=== PATIENT | male | born 1990 | race Asian ===

== ENCOUNTER 2024-06-07 09:27 | Outpatient (REF) | payer OTHER, SELFPAY ==
[2024-06-07 11:02] LABS: MANUAL DIFF FLAG NO
[2024-06-07 11:14] LABS: Basophils Percent Auto 0.7 % (0-2); Eosinophils Absolute Auto 0.3 X10*3/uL (0.0-0.4); Eosinophils Percent Auto 5.8 % (0-4); Hematocrit 44.7 % (42.0-52.0); Hemoglobin 15.4 g/dl (14.0-18.0); Imm Gran Abs Auto 0.03 X10*3/uL (0.00-0.03); Imm Gran Pct Auto 0.5 % (0.0-0.4); Lymphocytes Absolute Auto 1.8 X10*3/uL (1.2-4.9); Lymphocytes Percent Auto 29.9 % (20-40); Mean Corpuscular HGB Conc 34.5 g/dl (31.0-36.0); Mean Corpuscular Hemoglobin 31.5 pg (27.0-33.0); Mean Corpuscular Volume 91.4 fL (80.0-98.0); Mean Platelet Volume 10.4 fL (9.4-12.4); Monocytes Absolute Auto 0.5 X10*3/uL (0.1-1.2); Monocytes Percent Auto 8.7 % (2-11); Neutrophils Absolute Auto 3.2 x10*3/uL (2.0-8.3); Neutrophils Percent Auto 54.4 % (45-73); Platelet Count 225 X10*3/uL (160-400); Red Blood Count 4.89 X10*6/uL (4.60-5.80); Red Cell Distribution Width 12.3 % (11.0-16.0); White Blood Count 5.9 X10*3/uL (4.8-10.8)
[2024-06-07 12:31] LABS: Alanine Aminotransferase 35 U/L (0-40); Albumin Level 4.7 g/dL (3.5-5.0); Alkaline Phosphatase 67 U/L (39-117); Anion Gap 11 (12-20); Aspartate Amino Transferase 33 U/L (5-37); Bilirubin Total 1.2 mg/dL (0.0-1.0); Blood Urea Nitrogen 13 mg/dL (9-16); C Reactive Protein < 0.10 mg/dL (< or = 0.50); Carbon Dioxide 32 mmol/L (22-29); Chloride 105 mmol/L (96-108); Estimated Glomerular Filt Rate > 60; Glucose Random 98 mg/dL (60-115); Potassium 3.8 mmol/L (3.3-5.1); Sodium 144 mmol/L (135-145); Total Protein 7.5 g/dL (6.5-8.0)
[2024-06-07 12:40] LABS: HBS Num1 0.71 mIU/mL (0-7.99); HBc Num1 0.15 S/CO (0.00-0.79); Hepatitis B Core Antibody Nonreactive (Nonreactive); Hepatitis B Surface Antigen Negative (Negative); ~Hepatitis B Surface Antibody NONREACTIVE (Nonreactive); ~Hepatitis C Antibody Nonreactive (Nonreactive)
[2024-06-07 12:41] LABS: Hepatitis A Antibody IgG REACTIVE (Nonreactive); ~Hepatitis A Antibody IgG 11.78 S/CO (0.00-0.99)
[2024-06-07 12:51] LABS: Folate 7.2 ng/mL (> or = 4.0); Vitamin B12 360 pg/mL (200-900)
[2024-06-07 12:56] LABS: Free T4 (Free Thyroxine) 0.99 ng/dL (0.71-1.85); TSH reflex Free T4 1.54 uIU/mL (0.32-4.0)
[2024-06-07 13:05] LABS: Vitamin D 25-OH Total 19.8 ng/mL (>30)
[2024-06-09 17:03] LABS: Immunoglobulin A 159 mg/dL (47-310)
[2024-06-09 20:03] LABS: Transglutaminase IgA <1.0 U/mL
[2024-06-13 06:34] LABS: C1 Esterase Inhibitor 98 % (>=68)
== END 2024-06-07 09:28 | disposition home or self-care (01) ==
LOC: HO.LAB 09:27
PROVIDERS: PCP Nurse Practitioner Family; Visit Provider Internal Medicine
DX: K58.0 Irritable bowel syndrome with diarrhea (principal); K58.1 Irritable bowel syndrome with constipation; R10.30 Lower abdominal pain, unspecified; Z91.018 Allergy to other foods
CPT/HCPCS: 36415; 80053; 82306; 82607; 82746; 82784; 83520; 84439; 84443; 85025; 86140; 86160; 86161; 86364; 86704; 86706; 86708; 86803; 87340; 99202

== ENCOUNTER 2024-06-07 09:27 | Outpatient (AMB) | payer OTHER, SELFPAY ==
--- NOTE | 2024-06-07 09:29 | A.OFFVIS_ITS ---
Vital Signs 06/07/24 09:30 Height 5 ft 11 in Weight 176 lb 5.917 oz BMI 24.6 BP 136/75 Blood Pressure Location Lt radial Position Sitting Pulse 77 Intake Visit Reasons: Constipation Intake Note: Molly presents in the office as a new patient for constipation. CC: He states that he is having issues with constipation and other times he has diarrhea. Pains in the lower part of his abdomen. No blood when he has a BM. Mineral Surveying Technician Required: No Allergies No Known Allergies Allergy (Verified 06/07/24 09:31) HPI Comments Details: 33 y.o M with fluctuating BMs x years. [place] be in [place] moved to [facility] almost a year ago. Was recommended endoscopic work up back in [place] as well but never got around to it. Pt reports for the longest time had lower abd pain with diarrhea up to 5-6/ day. No night time sx. NO blood in stool. Abd pain gets better with defecation. More recently is fluctuating towards constipation for the past few months. Stool is hard and has to strain. Has not tried any specific therapy. Pt also reports extra-GI sx after certain foods such as increased sensation of flushing and skin rash after certain foods. Has never gotten food allergy testing done. Lifestyle is sedentary erika due to work. Diet is low in fiber. No fam hx of IBD or CRC. Labs from PCP reviewed- normal ESR. Review of Systems Const All systems reviewed & are unremarkable except as noted in HPI and below Physical Exam Vital Signs: Last Vital Signs Pulse 77 06/07/24 09:30 BP 136/75 06/07/24 09:30 BMI result Body Mass Index 24.6 No apparent distress Nonicteric Abdomen soft, nondistended Alert and oriented x3, normal gait Assessment & Plan Assessment & Plan (1) Irritable bowel syndrome with diarrhea: Code(s): K58.0 - Irritable bowel syndrome with diarrhea Category: Medical (2) Abdominal pain: Code(s): R10.9 - Unspecified abdominal pain Category: Medical (3) Food allergy: Code(s): Z91.018 - Allergy to other foods Category: Medical Plan Ddx include IBS, IBD, celiac, malabsorption, SIBO. Also question MCAS given reports of flushing and pruritic rash vs food allergy. Plan: - Labs as below - US Abd to r.o gallstones - Referral to professor of archaeology Follow up 6 weeks to review results Orders: Orders Comprehensive Met. Panel Today K58.0 - Irritable bowel syndrome with diarrhea, R10.9 - Unspecified abdominal pain Transglutaminase IgA Today K58.0 - Irritable bowel syndrome with diarrhea Immunoglobulin A Today K58.0 - Irritable bowel syndrome with diarrhea Vitamin B12 and Folate Today K58.0 - Irritable bowel syndrome with diarrhea Vitamin D 25-OH Total Today K58.0 - Irritable bowel syndrome with diarrhea Hepatitis B Core Antibody Today K58.0 - Irritable bowel syndrome with diarrhea Hepatitis B Surface Antibody Today K58.0 - Irritable bowel syndrome with diarrhea Complement C4 Today R10.9 - Unspecified abdominal pain C1 Esterase Inhibitor Today R10.9 - Unspecified abdominal pain C1 Inhibitor Protein Today R10.9 - Unspecified abdominal pain US abdomen complete Today R10.9 - Unspecified abdominal pain Complete Blood Count Auto Diff Today K58.0 - Irritable bowel syndrome with diarrhea, R10.9 - Unspecified abdominal pain Free T4 (Free Thyroxine) Today K58.0 - Irritable bowel syndrome with diarrhea, R10.9 - Unspecified abdominal pain TSH reflex Free T4 Today K58.0 - Irritable bowel syndrome with diarrhea, R10.9 - Unspecified abdominal pain Hepatitis A IgG Today K58.0 - Irritable bowel syndrome with diarrhea Hepatitis B Surface Antigen Today K58.0 - Irritable bowel syndrome with diarrhea Hepatitis C Antibody Today K58.0 - Irritable bowel syndrome with diarrhea Tryptase Today K58.0 - Irritable bowel syndrome with diarrhea C Reactive Protein Today R10.9 - Unspecified abdominal pain Calprotectin, Fecal Today R10.9 - Unspecified abdominal pain Referrals Allergy & Immunology Referral R10.9 - Unspecified abdominal pain, Z91.018 - Allergy to other foods Coding Level of Care Code New Pt Level 4 (13302) Complex EM visit Add On G2211 Diagnoses Irritable bowel syndrome with diarrhea K58.0 Abdominal pain R10.9 Food allergy Z91.018
[2024-06-07 09:30] VITALS: BP 136/75; PULSE 77; BMI 24.6
== END 2024-06-07 10:08 | disposition home or self-care (01) ==
PROVIDERS: PCP Nurse Practitioner Family; Visit Provider Internal Medicine
DX: K58.0 Irritable bowel syndrome with diarrhea (principal); R10.9 Unspecified abdominal pain; Z91.018 Allergy to other foods
CPT/HCPCS: 99204; G2211

== ENCOUNTER 2024-06-08 12:14 | Outpatient (REF) | payer OTHER, SELFPAY ==
[2024-06-16 23:43] LABS: Calprotectin, Fecal <5 mcg/g
== END 2024-06-08 12:15 | disposition home or self-care (01) ==
LOC: HO.LNP 12:14
PROVIDERS: Visit Provider Internal Medicine
DX: R10.9 Unspecified abdominal pain (principal)
CPT/HCPCS: 83993

== ENCOUNTER 2024-06-15 08:29 | Outpatient (REF) | payer OTHER, SELFPAY | END 2024-06-15 08:30 | disposition home or self-care (01) | LOC: HO.US 08:29 | PROVIDERS: PCP Nurse Practitioner Family; Visit Provider Internal Medicine | DX: R10.9 Unspecified abdominal pain (principal) | CPT/HCPCS: 76700 ==

== ENCOUNTER 2024-08-02 09:51 | Outpatient (AMB) | payer OTHER, SELFPAY ==
--- NOTE | 2024-08-02 09:54 | MHC.OFFVIS ---
Vital Signs 08/02/24 09:57 Height 5 ft 11 in Weight 177 lb BMI 24.7 BP 118/58 L Blood Pressure Location Lt brachial Position Sitting Pulse 80 Intake Visit Reasons: IBS 6 weeks Intake Note: Patient follow up for IBS. Patient cc: abdominal pain and painful constipation. Assistant Child Care Teacher Required: No Accompanied by: Self / Same As Patient Allergies No Known Allergies Allergy (Verified 08/02/24 09:56) HPI Comments Details: 33 y.o M with fluctuating BMs x years. [place] moved to [facility] almost a year ago. Was recommended endoscopic work up back [place] as well but never got around to it. Pt reports for the longest time had lower abd pain with diarrhea up to 5-6/ day. No night time sx. NO blood in stool. Abd pain gets better with defecation. More recently is fluctuating towards constipation for the past few months. Stool is hard and has to strain. Has not tried any specific therapy. Pt also reports extra-GI sx after certain foods such as increased sensation of flushing and skin rash after certain foods. Has never gotten food allergy testing done. Lifestyle is sedentary erika due to work. Diet is low in fiber. No fam hx of IBD or CRC. Labs from PCP reviewed- normal ESR. 08/02/24: Here for follow up. Was seen by indigo mixer 07/18 records pending. Reports continued issues with constipation including lower abd pain that gets better with defecation. Also with significant straining. Labs reviewed and apart from low complement 4, rest normal from GI standpoint. Reports work up is being done through indigo mixer office an resutls pending. Also has low Vit D for which supplements already started. Discussed dietary mods - had loose BMs with fiber so stopped within a week. Lifestyle is mostly sedentary. Laboratory Tests 06/07/24 06/08/24 11:00 09:45 Hgb 15.4 Hct 44.7 C-Reactive Protein < 0.10 Tryptase 3.4 25-OH Vitamin D Total 19.8 L TSH 1.54 Stool Calprotectin <5 Tiss Transglutamin IgA <1.0 Complement C4 13 L Hep Bs Antigen Negative Hep Bs Antibody NONREACTIVE Hep B Core Total Ab Nonreactive Review of Systems Const All systems reviewed & are unremarkable except as noted in HPI and below Physical Exam Vital Signs: Last Vital Signs Pulse 80 08/02/24 09:57 BP 118/58 L 08/02/24 09:57 BMI result Body Mass Index 24.7 No apparent distress Nonicteric Abdomen soft, nondistended Alert and oriented x3, normal gait Assessment & Plan Assessment & Plan (1) Abdominal pain: Code(s): R10.9 - Unspecified abdominal pain Category: Medical (2) Mixed irritable bowel syndrome: Code(s): K58.2 - Mixed irritable bowel syndrome Category: Medical (3) Not immune to hepatitis B virus: Code(s): Z78.9 - Other specified health status Category: Medical (4) Low vitamin D level: Code(s): R79.89 - Other specified abnormal findings of blood chemistry Category: Medical Plan Reviewed that based on w/up dx consistent with IBS-mixed type. Is bothered by constipation these days. Plan: - Adequate hydration - REsume fiber - can start slow with 1 tsp of psyllium mixed in 8 oz of water every day and build it up in a couple of weeks - Take miralax 17g once daily or every other day to avoid hard stools and straining - Elevate legs while having BM - Incorporate daily exercise/stretching - Associate Artistic Director records requested again Needs HBV immunization. Pt agreeable. Msg sent to RN \ Low vit D likely explains some of his fatigue he experiences on a daily basis. Supplement already started. Will recheck level before next appt to see if needs to cont. Follow up 3 months Orders: Orders Vitamin D 25-OH Total 10 Weeks R79.89 - Other specified abnormal findings of blood chemistry Coding Level of Care Code Est Pt Level 4 (27588) Diagnoses Abdominal pain R10.9 Mixed irritable bowel syndrome K58.2 Not immune to hepatitis B virus Z78.9 Low vitamin D level R79.89
[2024-08-02 09:57] VITALS: BP 118/58; PULSE 80; BMI 24.7
== END 2024-08-02 10:25 | disposition home or self-care (01) ==
PROVIDERS: PCP Nurse Practitioner Family; Visit Provider Internal Medicine
DX: R10.9 Unspecified abdominal pain (principal); K58.2 Mixed irritable bowel syndrome; Z78.9 Other specified health status; R79.89 Other specified abnormal findings of blood chemistry
CPT/HCPCS: 99214

== ENCOUNTER → 2024-08-02 09:51 | Outpatient (BNVA) | payer OTHER, SELFPAY | PROVIDERS: PCP Nurse Practitioner Family; Visit Provider Internal Medicine | DX: K58.2 Mixed irritable bowel syndrome (principal); R10.9 Unspecified abdominal pain; Z78.9 Other specified health status; R79.89 Other specified abnormal findings of blood chemistry | CPT/HCPCS: 99212 ==

== ENCOUNTER 2024-08-11 09:01 | Outpatient (AMB) | payer OTHER, SELFPAY ==
--- NOTE | 2024-08-11 09:15 | AM.OFFVISNUR ---
Intake Visit Reasons: Hep B #1 r/s 08/10 Allergies No Known Allergies Allergy (Verified 08/02/24 09:56) Immunizations Engerix-B (PF) 20 mcg/mL intramuscular suspension Performing Provider: Trinidad Kendall MD Performing Location: [facility] Administered by: Shaista Yen RN on 08/11/24 09:20 Dose Route Admin Location Dispensed Lot Number Expiration Date [facility] Geophysicist 1 mL IM Left Deltoid 1 mL [id number] 09/28/26 94784-491-88 [employer] VIS Given Date VIS Provided VIS Publication Date 08/11/24 Single Vaccine 22 Eligibility Eligibility Date Funding Source Not [facility] Eligible 08/11/24 Private Assessment & Plan Assessment & Plan Orders: Orders Hepatitis B Adult Immunization Today Z23 - Encounter for immunization Medications: New Engerix-B (PF) (hepatitis B virus vacc.rec(PF)) 1 mL IM ONCE 1 mL 0RF NS Z23 - Encounter for immunization
== END 2024-08-11 09:24 | disposition home or self-care (01) ==
PROVIDERS: PCP Nurse Practitioner Family; Visit Provider Internal Medicine
DX: Z23 Encounter for immunization (principal)

== ENCOUNTER → 2024-08-11 09:01 | Outpatient (BNVA) | payer OTHER, SELFPAY | PROVIDERS: PCP Nurse Practitioner Family; Visit Provider Internal Medicine | DX: Z23 Encounter for immunization (principal) | CPT/HCPCS: 90471; 90746; 99211 ==

== ENCOUNTER 2024-09-11 09:09 | Outpatient (AMB) | payer OTHER, SELFPAY ==
--- NOTE | 2024-09-11 09:23 | AM.OFFVISNUR ---
Intake Visit Reasons: Hep B #2 Allergies No Known Allergies Allergy (Verified 08/02/24 09:56) Immunizations Engerix-B (PF) 20 mcg/mL intramuscular suspension Performing Provider: Trinidad Kendall MD Performing Location: [facility] [place] [facility] Administered by: Shaista Yen RN on 09/11/24 09:23 Dose Route Admin Location Dispensed Lot Number Expiration Date [facility] Patient Consumer Marketer 1 mL IM Left Deltoid 1 mL [id number] 09/28/26 04976-757-05 [id number] VIS Given Date VIS Provided VIS Publication Date 09/11/24 Single Vaccine 22 Eligibility Eligibility Date Funding Source Not [facility] Eligible 09/11/24 Private Assessment & Plan Assessment & Plan Orders: Orders Hepatitis B Adult Immunization Today Z23 - Encounter for immunization Medications: New Engerix-B (PF) (hepatitis B virus vacc.rec(PF)) 1 mL IM ONCE 1 mL 0RF NS Z23 - Encounter for immunization
--- OUTSIDE RECORDS SUMMARY | 2024-09-11 13:27 | XMS_ITS | Continuity of Care Document ---
Author Organization [place] - [facility], [facility] Address [address] [place] [address] Care Team Providers Care Chief Engineer Waterworks Name Role Phone DAJUAN HYATT Primary Care Provider DAJUAN HYATT Referring Provider Assessment Encounter Date Assessment Date Assessment LastModified by Organization Details LastModified Time 08/30/2024 08/30/2024 Patient with right tympanic membrane perforation since childhood. Physical exam reveals it is clean and dry. We reviewed there are many options for repair and this would allow him to swim etc. Risks therein would include infection, scarring, change in hearing, lack of improvement, need for further treatment. Recommend dry ear precautions with wax plug for bathing and swimming; rationale reviewed and patient understands. He will return for surgical consult. He also reports his throat gets sore when he talks too long. We will scheduled comprehensive throat evaluation with laryngoscopy next available. [email or web address] Not available 08/30/2024 16:20:06 Plan of Treatment Reminders Order Date Submit Date Provider Last Modified By Organization Details Last Modified Time Details Appointments Establish ed 15 2024 09:15A M JEET FAROOQ PA-C Not available Not available Not available Establish ed 15 2024 09:00A M MARY LEA MD Not available Not available Not available Lab None recorded. Referral None recorded. Procedures None recorded. Surgeries None recorded. Imaging None recorded. Medication Orders None recorded. Patient TargetsNo targets recorded. Patient InstructionsNo instructions recorded. Reason for Referral None Reported. Results Created Date Observation Date Name Description Value Unit Range Abnormal Flag Note LastModifiedBy Organization Detail LastModifiedTime 09/01/19 25 audio gram No observ ation record ed. BARCODE Not Available 2024 12:59:06 Result Notes None recorded. Problems Name Problem SNOMED Code Status Onset Date Resolution Date Notes Provider Name and Address Organization Details Recorded Time Conductive hearing loss 41105400 Active 2024 Shabana mooney [place] - [facility] [place] 15:49:26 Chronic sore throat 394127467 Active 2024 ALEJANDRO FLYNN PA-C [address] [place] [address],[place] [address], [place], [phone], [facility] - [facility] [place] 16:20:23 Marginal perforation of tympanic membrane 09459867 Active 2024 ALEJANDRO FLYNN PA-C [address] [place] [address],[place] [address], [facility], [address], [facility] - [facility] [place] 16:20:38 Problem Notes None recorded. Procedures Surgical History Date Name Laterality Status Provider Name and Address Organization Details Recorded Time 08/30/2024 Comp Audio with Tymps (23984 & 93200) completed Shabana Licea [place] - [facility] [place] 08/30/2024 15:49:02 Imaging Results None recorded. Procedure Notes None recorded. Medical Equipment None Reported. Allergies No known drug allergies Medications Name Sig Start Date Stop Date Status Note LastModified by Organization Details LastModified Time azithromyci n 250 mg tablet TAKE 2 TABLETS BY MOUTH TODAY, THEN TAKE 1 TABLET DAILY FOR 4 DAYS DIRECTED 08/30 completed Not Available Not Available Not Available tretinoin 0.025 % topical cream PLEASE SEE ATTACHED FOR DETAILED DIRECTION S 08/30 completed Not Available Not Available Not Available benzoyl peroxide 10 % topical cleanser USE DAILY A BODY WASH.N OT COVERED * 08/30 completed Not Available Not Available Not Available cholecalcif kaitlin (vitamin D3) 125 mcg (5,000 unit) capsule TAKE 1 CAPSULE ORALLY EVERY WEEK FOR 90 DAYS active Not Available Not Available No t Available naproxen 500 mg tablet TAKE 1 TABLET BY MOUTH 2 TIMES A DAY NEEDED FOR PAIN 08/30 completed Not Available Not Available Not Available clindamycin phosphate 1 % topical solution APPLY TO AFFECTED AREA EVERY DAY 08/30 completed Not Available Not Available Not Available clindamycin 1 % lotion PLEASE SEE ATTACHED FOR DETAILED DIRECTION S 08/30 completed Not Available Not Available Not Available cholecalcif kaitlin (vitamin D3) 1,250 mcg (50,000 unit) capsule TAKE 1 CAPSULE BY MOUTH EVERY WEEK 08/30 completed Not Available Not Available Not Available Vitals None Recorded Social History None recorded. Functional Status None recorded. Mental Status None recorded. Family History Nothing Reported. Medical History No medical history recorded. Past Encounters Encounter ID Performer Location Encounter Start Date Encounter Closed Date Diagnosis/Indication Diagnosis SNOMED-CT Code Diagnosis ICD10 Code Diagnosis Note [id number] ALEJANDRO FLYNN PA-C [facility] [address] [address] 08/30/2024 15:20:29 08/30/2024 16:09:01 Conductive hearing loss 52980811 H90.11 Audiologic al evaluation results: Right ear: {{Normal N ormal through 2 kHz Mild M oderate Mo derately-s evere Umu re Profoun d Normal/m ild #}} {{with sen sorineural hearing loss with condu ctive hearing loss with* mixe d hearing loss with}} {{excellen t* good fa ir poor no measurable }} word recognitio n. Left ear: {{Normal* Normal through 2 kHz Mild M oderate Mo derately-s evere Umu re Profoun d}} {{hearing* hearing. sloping to a mild slopi ng to a moderate s loping to moderately severe slo ping to severe slo ping to profound f lat high frequency low frequency mid frequency cookie bite camargo curve}} {{with* se nsorineura l hearing loss with condu ctive hearing loss with mixed hearing loss with}} {{excellen t* good fa ir poor no measurable }} word recognitio n. Tympanomet ry: Right Ear:{{Type A Type As Type Ad Type C Type C, shallow & rounded Ty pe B Type B with large volume* Co uld not maintain a hermetic seal}} Left Ear:{{Type A* Type As Type Ad Type C Type C, shallow & rounded Ty pe B Type B with large volume Cou ld not maintain a hermetic seal}} Chronic sore throat 2754 70602 J31.2 Marginal p erforation of tympanic membrane 40180755 H72.2X1 Health Concerns Section Related Observation LastModified by Organization Detai ls LastModified Time None Recorded Concern Status LastModified by Organization Details LastModified Time None Recorded Payers Encounter Date Sequence Insurance Name Policy Number Policy Han Covered Member ID Han Member ID Guarantor Name 08/30/2024 1 [facility] (O) [id number] Molly Weinstein [id number] 1 Molly Corinna Notes Date Note Type Note Provider Name and Address Organization Details Recorded Time 08/30/2024 text/html 33 year old male presents for evaluation of ears and hearing. He reports reduced hearing in my right ear and intermittent pain on the same side. Hearing has been down for most of his life. In 8th grade he was told he had a hole in the right ear drum. He tries to avoid getting water in it but does not use plugs in the shower. There is no tinnitus. There is rare otorrhea, none recently. History of recurrent otitis, most recently a year ago. He has never undergone otologic surgery. ALEJANDRO FLYNN PA-C [address] [place] [address], [phone], [facility] - [facility] 08/30/2024 16:21:05
--- OUTSIDE RECORDS SUMMARY | 2024-09-11 13:27 | XMS_ITS | Data Portability ---
Author Organization [place] - [facility], Allergy Address [address] [place] [phone] Care Team Providers Care Silk Screen Painter Name Role Phone DAJUAN HYATT Primary Care [...] Organization Details Recorded Time Conductive hearing loss 43686858 Active 2024 Shabana mooney MA [facility] 15:49:26 Chronic sore throat 403876588 Active [address] [facility],[place] [address], [place], [address], [facility] 16:20:23 Marginal perforation of tympanic membrane 22819727 Active 2024 ALEJANDRO FLYNN PA-C [address] [facility], [place], [address], [facility] 16:20:38 Problem Notes None recorded. Procedures Surgical History Date Name Laterality Status Provider Name and Address Organization Details Recorded Time 08/30/2024 Comp Audio with Tymps (57275 & 83499) completed Shabana Licea MA [facility] 08/30/2024 15:49:02 Imaging Results Imaging Date Name Status LastModified by Organiz ation Details LastModified Time 09/01/2024 audiogram completed BARCODE Information no t available 09/01/2024 12:59:06 Procedure Notes None recorded. Medical Equipment None [...] SNOMED-CT Code Diagnosis ICD10 Code Diagnosis Note [id number] ALEJANDRO FLYNN PA-C [facility] [address] [address] 08/30/2024 15:20:29 08/30/2024 16:09:01 Conductive hearing loss 62597926 H90.11 Audiologic al evaluation results: Right ear: [...] a hermetic seal}} Chronic sore throat 2754 03983 J31.2 Marginal p erforation of tympanic membrane 62532103 H72.2X1 Health Concerns Section Related Observation LastModified by Organization Detai ls LastModified Time None Recorded Concern Status LastModified by Organization Details LastModified Time None Recorded Advance Directives Directive None Recorded Payers Encounter Date Sequence Insurance Name Policy Number Policy Han Covered Member ID Han Member ID Guarantor Name 08/30/2024 1 [facility] [employer] [facility] ([id number]) [id number] Molly Weinstein [id number] 1 Molly Corinna Notes Date Note Type [...] never undergone otologic surgery. ALEJANDRO FLYNN PA-C [address] [place] [address], [phone], [facility] - [facility] 08/30/2024 16:21:05
== END 2024-09-11 09:24 | disposition home or self-care (01) ==
PROVIDERS: PCP Nurse Practitioner Family; Visit Provider Internal Medicine
DX: Z23 Encounter for immunization (principal)

== ENCOUNTER → 2024-09-11 09:09 | Outpatient (BNVA) | payer OTHER, SELFPAY | PROVIDERS: PCP Nurse Practitioner Family; Visit Provider Internal Medicine | DX: Z23 Encounter for immunization (principal) | CPT/HCPCS: 90471; 90746; 99211 ==

== ENCOUNTER 2024-10-19 14:09 | Outpatient (REF) | payer OTHER, SELFPAY ==
--- OUTSIDE RECORDS SUMMARY | 2024-10-19 17:20 | XMS_ITS | Data Portability ---
Author Organization [place] - [facility], Allergy Address [address] [place] [address] Care Team Providers Care Metal Fabricator Helper Name Role Phone DAJUAN HYATT Primary Care [...] Organization Details Last Modified Time Details Appointments None record ed. Lab None record ed. Referral None record ed. Procedures None record ed. Surgeries None record ed. Imaging None record ed. Medication Orders None record ed. Patient TargetsNo targets recorded. Patient InstructionsNo instructions [...] Organization Details Recorded Time Conductive hearing loss 14703019 Active 2024 Shabana mooney [place] - [facility] [place] 15:49:26 Chronic sore throat 285734846 Active 2024 ALEJANDRO FLYNN PA-C [address] [place] [address], [place], [phone], [facility] - [facility] [place] 16:20:23 Marginal perforation of tympanic membrane 08085591 Active 2024 ALEJANDRO FLYNN PA-C [address] [place] [address], [place], [phone], [facility] [place] 16:20:38 Problem Notes None recorded. Procedures Surgical History Date Name Laterality Status Provider Name and Address Organization Details Recorded Time 08/30/2024 Comp Audio with Tymps (75027 & 39901) completed Shabana Licea [place] - [facility] [place] 08/30/2024 15:49:02 Imaging Results Imaging Date Name [...] SNOMED-CT Code Diagnosis ICD10 Code Diagnosis Note [id number] ALEJANDRO FLYNN PA-C [facility] [address] [place] [address] 08/30/2024 15:20:29 08/30/2024 16:09:01 Conductive hearing loss 35030214 H90.11 Audiologic al evaluation results: Right ear: [...] a hermetic seal}} Chronic sore throat 2754 22383 J31.2 Marginal p erforation of tympanic membrane 42826581 H72.2X1 Health Concerns Section Related Observation LastModified by Organization Detai ls LastModified Time None Recorded Concern Status LastModified by Organization Details LastModified Time None Recorded Advance Directives Directive None Recorded Payers Encounter Date Sequence Insurance Name Policy Number Policy Han Covered Member ID Han Member ID Guarantor Name 08/30/2024 1 [facility] (O) [id number] Molly Weinstein [id number] Molly Corinna Notes Date Note Type [...] never undergone otologic surgery. ALEJANDRO FLYNN PA-C [address] [place] [address], [phone], [facility] - [facility] 08/30/2024 16:21:05
[2024-10-19 18:41] LABS: Vitamin D 25-OH Total 41.1 ng/mL (>30)
== END 2024-10-19 14:10 | disposition home or self-care (01) ==
LOC: HO.WFDLDS 14:09
PROVIDERS: Visit Provider Internal Medicine
DX: R79.89 Other specified abnormal findings of blood chemistry (principal)
CPT/HCPCS: 36415; 82306

== ENCOUNTER 2024-11-23 15:03 | Outpatient (AMB) | payer OTHER, SELFPAY ==
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
[2024-11-23 15:17] VITALS: BP 130/60; PULSE 89; RESP 12; TEMP 37.8; O2SAT 95; BMI 26.1
--- OUTSIDE RECORDS SUMMARY | 2024-11-23 17:33 | XMS_ITS | Data Portability ---
Author Organization [place] - [facility], Allergy Address [address] [place] [phone] Care Team Providers Care Tire Buster Name Role Phone DAJUAN HYATT Primary Care Provider [phone] DAJUAN HYATT Referring Provider Assessment Encounter Date [...] Organization Details Recorded Time Conductive hearing loss 13514231 Active 2024 Shabana mooney [place] - [facility] [place] 15:49:26 Chronic sore throat 905235957 Active 2024 ALEJANDRO FLYNN PA-C [address] [place] [address], [place], [phone], [facility] - [facility] [place] 16:20:23 Marginal perforation of tympanic membrane 85215720 Active 2024 ALEJANDRO FLYNN PA-C [address] [place] [address], [place], [phone], [facility] 16:20:38 Problem Notes None recorded. Procedures Surgical History Date Name Laterality Status Provider Name and Address Organization Details Recorded Time 08/30/2024 Comp Audio with Tymps (71009 & 35980) completed Shabana Licea MA - [facility] 08/30/2024 15:49:02 Imaging Results Imaging Date Name [...] SNOMED-CT Code Diagnosis ICD10 Code Diagnosis Note [id number] ALEJANDRO FLYNN PA-C [facility] [address] [place] [address] 08/30/2024 15:20:29 08/30/2024 16:09:01 Conductive hearing loss 75029357 H90.11 Audiologic al evaluation results: Right ear: [...] a hermetic seal}} Chronic sore throat 2754 60898 J31.2 Marginal p erforation of tympanic membrane 41339696 H72.2X1 Health Concerns Section Related Observation LastModified by Organization Detai ls LastModified Time None Recorded Concern Status LastModified by Organization Details LastModified Time None Recorded Advance Directives Directive None Recorded Payers Encounter Date Sequence Insurance Name Policy Number Policy Han Covered Member ID Han Member ID Guarantor Name 08/30/2024 1 [facility] (O) [id number] oMlly Weinstein [id number] 1 Molly Corinna Notes Date Note Type [...] never undergone otologic surgery. ALEJANDRO FLYNN PA-C [address] [place] [address], [phone], [facility] - [facility] 08/30/2024 16:21:05
== END 2024-11-23 15:41 | disposition home or self-care (01) ==
LOC: HO.HMCFM 15:04
PROVIDERS: PCP Nurse Practitioner Family; Visit Provider Family Medicine
DX: M54.50 Low back pain, unspecified (principal); K59.00 Constipation, unspecified; Z87.81 Personal history of (healed) traumatic fracture; M25.531 Pain in right wrist; Z71.85 Encounter for immunization safety counseling; Z00.00 Encounter for general adult medical examination without abnormal findings

== ENCOUNTER → 2024-11-23 15:03 | Outpatient (BNVA) | payer OTHER, SELFPAY | PROVIDERS: PCP Nurse Practitioner Family; Visit Provider Family Medicine | DX: Z00.00 Encounter for general adult medical examination without abnormal findings (principal); M54.50 Low back pain, unspecified; K59.00 Constipation, unspecified; M25.531 Pain in right wrist; Z23 Encounter for immunization; Z71.89 Other specified counseling; Z87.81 Personal history of (healed) traumatic fracture | CPT/HCPCS: 90471; 90715; 96127; 99202 ==

== ENCOUNTER 2024-11-24 09:31 | Outpatient (REF) | payer OTHER, SELFPAY ==
[2024-11-24 11:38] LABS: MANUAL DIFF FLAG NO
[2024-11-24 11:39] LABS: Basophils Percent Auto 0.7 % (0-2); Eosinophils Absolute Auto 0.5 X10*3/uL (0.0-0.4); Hematocrit 43.3 % (42.0-52.0); Imm Gran Abs Auto 0.03 X10*3/uL (0.00-0.03); Imm Gran Pct Auto 0.5 % (0.0-0.4); Lymphocytes Absolute Auto 1.7 X10*3/uL (1.2-4.9); Lymphocytes Percent Auto 28.3 % (20-40); Mean Corpuscular HGB Conc 34.6 g/dl (31.0-36.0); Mean Corpuscular Hemoglobin 31.3 pg (27.0-33.0); Mean Corpuscular Volume 90.2 fL (80.0-98.0); Mean Platelet Volume 10.5 fL (9.4-12.4); Monocytes Absolute Auto 0.5 X10*3/uL (0.1-1.2); Neutrophils Absolute Auto 3.2 x10*3/uL (2.0-8.3); Neutrophils Percent Auto 53.5 % (45-73); Platelet Count 221 X10*3/uL (160-400); Red Cell Distribution Width 12.4 % (11.0-16.0); White Blood Count 5.9 X10*3/uL (4.8-10.8)
[2024-11-24 12:01] LABS: Alanine Aminotransferase 38 U/L (0-40); Albumin Level 4.4 g/dL (3.5-5.0); Alkaline Phosphatase 75 U/L (39-117); Anion Gap 9 (12-20); Aspartate Amino Transferase 30 U/L (5-37); Bilirubin Total 0.6 mg/dL (0.0-1.0); Blood Urea Nitrogen 14 mg/dL (9-16); Calcium 9.3 mg/dL (8.4-10.2); Carbon Dioxide 29 mmol/L (22-29); Chloride 108 mmol/L (96-108); Cholesterol 145 mg/dL (<200); Estimated Glomerular Filt Rate > 60; Glucose Fasting 97 mg/dL (60-99); HDL Cholesterol 38 mg/dL (>40); LDL Cholesterol Calculated 60 mg/dL (<100); Potassium 3.7 mmol/L (3.3-5.1); Sodium 142 mmol/L (135-145); Triglycerides 236 mg/dL (<150)
[2024-11-24 12:17] LABS: HBS Num1 55.78 mIU/mL (0-7.99); HBc Num1 0.09 S/CO (0.00-0.79); HBsAGNum1 0.32 S/CO (0.00-0.99); HIV AB/AG Nonreactive (Nonreactive); HIV Num 1 0.14 S/CO (0.00-0.99); Hepatitis B Core Antibody Nonreactive (Nonreactive); Hepatitis B Surface Antigen Negative (Negative); ~HepC Num1 0.19 S/CO (0.00-0.79); ~Hepatitis B Surface Antibody REACTIVE (Nonreactive); ~Hepatitis C Antibody Nonreactive (Nonreactive)
[2024-11-24 12:18] LABS: Syphilis Screen Nonreactive (Nonreactive)
[2024-11-24 12:21] LABS: TSH reflex Free T4 1.52 uIU/mL (0.32-4.0)
[2024-11-24 12:26] LABS: Erythrocyte Sedimentation Rate 2 MM/HR (0-15)
[2024-11-24 17:53] LABS: Appearance Urine Clear; Color Urine Yellow; Glucose Urine UA Negative (Negative); Leukocyte Esterase Urine Negative (Negative); Nitrite Urine Negative (Negative); Specific Gravity - Urine <= 1.005 (1.005-1.025); Urine Blood Negative (Negative); Urine Ketones Negative (Negative); Urine Protein Negative (Neg-Trace)
[2024-11-24 18:22] LABS: Creatinine Urine 29.51 mg/dL; Microalbumin Urine < 5.0 mg/L
[2024-11-25 08:52] LABS: Adenovirus F 40/41 Not Detected (Not Detect.); Astrovirus Not Detected (Not Detect.); Campylobacter Not Detected (Not Detect.); Cryptosporidium Not Detected (Not Detect.); Cyclospora cayetanensis Not Detected (Not Detect.); E. coli EAEC Not Detected (Not Detect.); E. coli EPEC Not Detected (Not Detect.); E. coli ETEC Not Detected (Not Detect.); E. coli STEC Not Detected (Not Detect.); Entamoeba histolytica Not Detected (Not Detect.); Giardia lamblia Not Detected (Not Detect.); Plesiomonas shigelloides Not Detected (Not Detect.); Rotavirus A Not Detected (Not Detect.); Salmonella Not Detected (Not Detect.); Sapovirus Not Detected (Not Detect.); Shigella sp./EIEC Not Detected (Not Detect.); Vibrio Not Detected (Not Detect.); Vibrio Cholerae Not Detected (Not Detect.); Yersinia enterocolitica Not Detected (Not Detect.)
[2024-11-27 13:08] LABS: Norovirus GI/GII Detected (Not Detect.)
[2024-11-27 15:43] LABS: CRP High Sensitivity 0.9 mg/L
== END 2024-11-24 09:32 | disposition home or self-care (01) ==
LOC: HO.WFDLDS 09:31
PROVIDERS: Visit Provider Family Medicine
DX: Z00.00 Encounter for general adult medical examination without abnormal findings (principal); Z11.3 Encounter for screening for infections with a predominantly sexual mode of transmission; M54.50 Low back pain, unspecified; I10 Essential (primary) hypertension; R10.9 Unspecified abdominal pain; K58.2 Mixed irritable bowel syndrome; R19.7 Diarrhea, unspecified
CPT/HCPCS: 36415; 80053; 80061; 81003; 82570; 84443; 85025; 85652; 86141; 86704; 86706; 86780; 86803; 87340; 87389; 87507

== ENCOUNTER 2025-01-03 09:09 | Outpatient (AMB) | payer OTHER, SELFPAY ==
--- NOTE | 2025-01-03 09:10 | MHC.OFFVIS ---
Vital Signs 01/03/25 09:11 Height 5 ft 11 in Weight 189 lb 9.561 oz BMI 26.4 BP 119/76 Blood Pressure Location Lt brachial Position Sitting Pulse 78 Pulse Source Pulse Oximeter Pulse Oximetry (%) 97 Oxygen Delivery Method Room Air Intake Visit Reasons: 3 mo f/u r/s no show from 11/01/24 Intake Note: Pt presents to the office today for a 3 month follow up. Pt states he still experiences constipation but states the fibercon is helping. Allergies No Known Allergies Allergy (Verified 01/03/25 09:10) HPI Comments Details: 33 y.o M with fluctuating BMs x years. [place] moved to [facility] almost a year ago. Was recommended endoscopic work up back in [place] as well but never got around to it. Pt reports for the longest time had lower abd pain with diarrhea up to 5-6/ day. No night time sx. NO blood in stool. Abd pain gets better with defecation. More recently is fluctuating towards constipation for the past few months. Stool is hard and has to strain. Has not tried any specific therapy. Pt also reports extra-GI sx after certain foods such as increased sensation of flushing and skin rash after certain foods. Has never gotten food allergy testing done. Lifestyle is sedentary erika due to work. Diet is low in fiber. No fam hx of IBD or CRC. Labs from PCP reviewed- normal ESR. 08/02/24: Here for follow up. Was seen by community association manager 07/18 records pending. Reports continued issues with constipation including lower abd pain that gets better with defecation. Also with significant straining. Labs reviewed and apart from low complement 4, rest normal from GI standpoint. Reports work up is being done through community association manager office an resutls pending. Also has low Vit D for which supplements already started. Discussed dietary mods - had loose BMs with fiber so stopped within a week. Lifestyle is mostly sedentary. Laboratory Tests 06/07/24 06/08/24 11:00 09:45 Hgb 15.4 Hct 44.7 C-Reactive Protein < 0.10 Tryptase 3.4 25-OH Vitamin D Total 19.8 L TSH 1.54 Stool Calprotectin <5 Tiss Transglutamin IgA <1.0 Complement C4 13 L Hep Bs Antigen Negative Hep Bs Antibody NONREACTIVE Hep B Core Total Ab Nonreactive 01/03/25: Here for follow up. Reports took psyllium x 1 week. However gets significant bloating. Was switched to fibercon by PCP. However despite improvement in constipation persists with abd cramping and bloating. Sometimes also fluctuates with diarrhea. [facility] Medical History IBS (irritable bowel syndrome) Family History Mother High blood pressure Diabetes Social History Housing: House Patient Tobacco Use Status: Never used Tobacco e-Cigarette/Vaping Use: Never Used Second Hand Smoke Exposure: No service: No Current occupational status: employed Current occupation: retail Current occupational exposures/hazards: No Cognitive needs: No Hearing needs: No Vision needs: No Review of Systems Const All systems reviewed & are unremarkable except as noted in HPI and below Physical Exam Vital Signs: Last Vital Signs Pulse 78 01/03/25 09:11 BP 119/76 01/03/25 09:11 Pulse Ox 97 01/03/25 09:11 Oxygen Delivery Method Room Air 01/03/25 09:11 BMI result Body Mass Index 26.4 No apparent distress Nonicteric Abdomen soft, nondistended Alert and oriented x3, normal gait Assessment & Plan Assessment & Plan (1) Abdominal pain: Code(s): R10.9 - Unspecified abdominal pain Category: Medical (2) Mixed irritable bowel syndrome: Code(s): K58.2 - Mixed irritable bowel syndrome Category: Medical (3) Not immune to hepatitis B virus: Code(s): Z78.9 - Other specified health status Category: Medical Plan Reviewed that based on w/up dx consistent with IBS-mixed type. However constipation remains more bothersome with global sx. Also unable to tolerate the fiber supplement. Plan: - Adequate hydration - Encouraged to incorporate more dietary fiber for better tolerance. Handout on portal. - Can also try benefiber to see if that is better tolerated - Low FODMAP diet again reviewed - Linzess 72 mcg once daily Rxed. Pt to contact through portal if not effective and needs dose adjustment. - Elevate legs while having BM - Incorporate daily exercise/stretching Completing HBV vaccination series. Follow up 3 months Medications: New linaclotide (Linzess) 72 mcg PO DAILY 90 days 90 caps 1RF Coding Level of Care Code Est Pt Level 4 (37540) Diagnoses Abdominal pain R10.9 Mixed irritable bowel syndrome K58.2 Not immune to hepatitis B virus Z78.9
[2025-01-03 09:11] VITALS: BP 119/76; PULSE 78; O2SAT 97; BMI 26.4
--- OUTSIDE RECORDS SUMMARY | 2025-01-03 10:24 | XMS_ITS | Data Portability ---
Author Organization [place] - [facility], Allergy Address [address] [place] [address] Care Team Providers Care Steel Die Press Set Up Operator Name Role Phone ADJUAN HYATT Primary Care Provider DAJUAN HYATT Referring Provider [phone] Assessment Encounter Date Assessment Date Assessment LastModified [...] Organization Details Recorded Time Conductive hearing loss 22442448 Active 2024 Shabana mooney MA - [facility] [place] 15:49:26 Chronic sore throat 089097032 Active 2024 ALEJANDRO FLYNN PA-C [address] [place] [address], [place], [phone], [facility] - [facility] [place] 16:20:23 Marginal perforation of tympanic membrane 10074540 Active 2024 ALEJANDRO FLYNN PA-C [address] [place] [address], [place], [phone], [facility] - [facility] [place] 16:20:38 Problem Notes None recorded. Procedures Surgical History Date Name Laterality Status Provider Name and Address Organization Details Recorded Time 08/30/2024 Comp Audio with Tymps - 21217 & 79816 completed Shabana Licea MA - [facility] [place] 08/30/2024 15:49:02 Imaging Results Imaging Date Name [...] SNOMED-CT Code Diagnosis ICD10 Code Diagnosis Note [id number] ALEJANDRO FLYNN PA-C [facility] [address] [place] [address] 08/30/2024 15:20:29 08/30/2024 16:09:01 Conductive hearing loss 92757739 H90.11 Audiologic al evaluation results: Right ear: [...] a hermetic seal}} Chronic sore throat 2754 [address]0948 J31.2 Marginal p erforation of tympanic membrane 62176440 H72.2X1 Health Concerns Section Related Observation LastModified by Organization Detai ls LastModified Time None Recorded Concern Status LastModified by Organization Details LastModified Time None Recorded Advance Directives Directive None Recorded Payers Insurance Date Sequence Insurance Name Policy Number Policy Han Covered Member ID Han Member ID Guarantor Name 09/18/2024 1 [facility] [employer] [facility] (O) [id number] Molly Weinstein [id number] 1 Molly Corinna Notes Date Note Type [...] never undergone otologic surgery. ALEJANDRO FLYNN PA-C [address] [place] [address], [phone], [facility] - [facility] 08/30/2024 16:21:05
== END 2025-01-03 09:48 | disposition home or self-care (01) ==
LOC: HO.HGI 09:10
PROVIDERS: PCP Nurse Practitioner Family; Visit Provider Internal Medicine
DX: R10.9 Unspecified abdominal pain (principal); K58.2 Mixed irritable bowel syndrome; Z78.9 Other specified health status
CPT/HCPCS: 99214

== ENCOUNTER → 2025-01-03 09:09 | Outpatient (BNVA) | payer OTHER, SELFPAY | PROVIDERS: PCP Nurse Practitioner Family; Visit Provider Internal Medicine | DX: K58.2 Mixed irritable bowel syndrome (principal); R10.9 Unspecified abdominal pain; Z78.9 Other specified health status | CPT/HCPCS: 99212 ==

== ENCOUNTER 2025-02-19 10:35 | Outpatient (AMB) | payer OTHER, SELFPAY ==
--- NOTE | 2025-02-19 10:42 | AM.OFFVISNUR ---
Intake Visit Reasons: Hep B #3 Allergies No Known Allergies Allergy (Verified 01/03/25 09:10) Immunizations Engerix-B (PF) 20 mcg/mL intramuscular suspension Performing Provider: Trinidad Kendall MD Performing Location: [facility] Administered by: Shaista Yen RN on 02/19/25 10:42 Dose Route Admin Location Dispensed Lot Number Expiration Date [facility] Bookkeeper Receptionist 1 mL IM Left Deltoid 1 mL [id number] 03/13/27 23335-940-59 [employer] Total Dispensed Waste 1 mL 0 % VIS Given Date VIS Provided VIS Publication Date 02/19/25 Single Vaccine 22 Eligibility Eligibility Date Funding Source Not [facility] Eligible 02/19/25 Private Assessment & Plan Assessment & Plan Orders: Orders Hepatitis B Adult Immunization Today Z23 - Encounter for immunization Coding
--- OUTSIDE RECORDS SUMMARY | 2025-02-19 11:27 | XMS_ITS | Data Portability ---
Author Organization [place] - [facility], Allergy Address [address] [address] Care Team Providers Care Phlebotomy Manager Name Role Phone DAJUAN HYATT Primary Care [...] Organization Details Recorded Time Conductive hearing loss 34067947 Active 2024 Shabana mooney [place] - [facility] [place] 15:49:26 Chronic sore throat 337003351 Active 2024 ALEJANDRO FLYNN PA-C [address] [place] [address],[place] [address], [place], [phone], [facility] - [facility] [place] 16:20:23 Marginal perforation of tympanic membrane 51996541 Active 2024 ALEJANDRO FLYNN PA-C [address] [facility],[place] [address], [place], [address], [facility] [place] 16:20:38 Problem Notes None recorded. Procedures Surgical History Date Name Laterality Status Provider Name and Address Organization Details Recorded Time 08/30/2024 Comp Audio with Tymps - 97574 & 18062 completed Shabana Licea MA - [facility] [place] 08/30/2024 15:49:02 Imaging Results None recorded. Procedure [...] SNOMED-CT Code Diagnosis ICD10 Code Diagnosis Note [id number] ALEJANDRO FLYNN PA-C [facility] [address] [address] 08/30/2024 15:20:29 08/30/2024 16:09:01 Conductive hearing loss 01020862 H90.11 Audiologic al evaluation results: Right ear: Normal/mil d conductive hearing loss with excellent word recognitio n. Left ear: Normal hearing with excellent word recognitio n. Tympanomet ry: Right Ear:Type B with large volume Left Ear:Type A Chronic sore throat 2754 04642 J31.2 Marginal p erforation of tympanic membrane 64765689 H72.2X1 Health Concerns Section Related Observation LastModified by Organization Detai ls LastModified Time None Recorded Concern Status LastModified by Organization Details LastModified Time None Recorded Advance Directives Directive None Recorded Payers Insurance Date Sequence Insurance Name Policy Number Policy Han Covered Member ID Han Member ID Guarantor Name 09/18/2024 1 [facility] [employer] [facility] (HMO) [id number] Molly Corinna [id number] 1 Molly Weinstein Notes Date Note Type Note Provider Name [...] never undergone otologic surgery. ALEJANDRO FLYNN PA-C [address] [place] [address], [phone], [facility] - [facility] 08/30/2024 16:21:05
== END 2025-02-19 10:43 | disposition home or self-care (01) ==
PROVIDERS: PCP Nurse Practitioner Family; Visit Provider Internal Medicine
DX: Z23 Encounter for immunization (principal)

== ENCOUNTER → 2025-02-19 10:35 | Outpatient (BNVA) | payer OTHER, SELFPAY | PROVIDERS: PCP Nurse Practitioner Family; Visit Provider Internal Medicine | DX: Z23 Encounter for immunization (principal) | CPT/HCPCS: 90471; 90746 ==

== ENCOUNTER 2025-04-11 09:30 | Outpatient (AMB) | payer OTHER, SELFPAY ==
[2025-04-11 09:32] VITALS: BP 132/72; PULSE 86; O2SAT 98; BMI 26.1
--- NOTE | 2025-04-11 09:32 | A.OFFVIS_ITS ---
Vital Signs 04/11/25 09:32 Height 5 ft 11 in Weight 187 lb BMI 26.1 BP 132/72 Blood Pressure Location Rt brachial Position Sitting Pulse 86 Pulse Source Pulse Oximeter Pulse Oximetry (%) 98 Oxygen Delivery Method Room Air Intake Visit Reasons: f/u 3m Intake Note: Est pt for mgmt of constipation + abd pain. CC; C.O. chronic sx persistence despite current therapy. Pt would like to discuss linzess as he did not feel that it was the right choice for him. Administrator Social Welfare Required: No Accompanied by: Self / Same As Patient Allergies No Known Allergies Allergy (Verified 04/11/25 09:33) HPI Comments Details: 33 y.o M with fluctuating BMs x years. Used to be in [place] moved to [facility] almost a year ago. Was recommended endoscopic work up back in [place] as well but never got around to it. Pt reports for the longest time had lower abd pain with diarrhea up to 5-6/ day. No night time sx. NO blood in stool. Abd pain gets better with defecation. More recently is fluctuating towards constipation for the past few months. Stool is hard and has to strain. Has not tried any specific therapy. Pt also reports extra-GI sx after certain foods such as increased sensation of flushing and skin rash after certain foods. Has never gotten food allergy testing done. Lifestyle is sedentary erika due to work. Diet is low in fiber. No fam hx of IBD or CRC. Labs from PCP reviewed- normal ESR. 08/02/24: Here for follow up. Was seen by supervisor printing shop 07/18 records pending. Reports continued issues with constipation including lower abd pain that gets better with defecation. Also with significant straining. Labs reviewed and apart from low complement 4, rest normal from GI standpoint. Reports work up is being done through supervisor printing shop office an resutls pending. Also has low Vit D for which supplements already started. Discussed dietary mods - had loose BMs with fiber so stopped within a week. Lifestyle is mostly sedentary. Laboratory Tests 06/07/24 06/08/24 11:00 09:45 Hgb 15.4 Hct 44.7 C-Reactive Protein < 0.10 Tryptase 3.4 25-OH Vitamin D Total 19.8 L TSH 1.54 Stool Calprotectin <5 Tiss Transglutamin IgA <1.0 Complement C4 13 L Hep Bs Antigen Negative Hep Bs Antibody NONREACTIVE Hep B Core Total Ab Nonreactive 01/03/25: Here for follow up. Reports took psyllium x 1 week. However gets significant bloating. Was switched to fibercon by PCP. However despite improvement in constipation persists with abd cramping and bloating. Sometimes also fluctuates with diarrhea. 04/11/25: Here for follow up. Had severe side effects with linzess despite retrial. Continues to fluctuate between constipation and diarrhea. Describes constipation as hard stool that requires significant straining. Passes small sara. But does go daily. Has tried psyllium but caused cramping and bloating. Between diarrhea and constipation, constipation is more bothersome. [facility] Medical History IBS (irritable bowel syndrome) Family History Mother High blood pressure Diabetes Social History Housing: House Patient Tobacco Use Status: Never used Tobacco e-Cigarette/Vaping Use: Never Used Second Hand Smoke Exposure: No service: No Current occupational status: employed Current occupation: retail Current occupational exposures/hazards: No Cognitive needs: No Hearing needs: No Vision needs: No Review of Systems Const All systems reviewed & are unremarkable except as noted in HPI and below Physical Exam Exam Exam: No apparent distress Nonicteric Abdomen soft, nondistended Alert and oriented x3, normal gait Vital Signs: Last Vital Signs Pulse 86 04/11/25 09:32 BP 132/72 04/11/25 09:32 Pulse Ox 98 04/11/25 09:32 Oxygen Delivery Method Room Air 04/11/25 09:32 BMI result Body Mass Index 26.1 Assessment & Plan Assessment & Plan (1) Abdominal pain: Code(s): R10.9 - Unspecified abdominal pain Category: Medical (2) Mixed irritable bowel syndrome: Code(s): K58.2 - Mixed irritable bowel syndrome Category: Medical Plan Reviewed that based on w/up dx consistent with IBS-mixed type. However constipation remains more bothersome with global sx. Reviewed that would recommend changing the type of fiber and adding miralax to regimen. Devers secretagogue if no BM > 3 days with this. - Adequate hydration - Stop psyllium. Start benefiber and increase to 1 tbsp per day gradually. - Add miralax once a day. Skip if develops loose stools. - Stop Linzess - If no response to above intervention, can take motegrity 1 mg daily - Low FODMAP diet again reviewed - Incorporate daily exercise/stretching Follow up 2 months Medications: New prucalopride (Motegrity) 1 mg PO DAILY 30 tabs 0RF 30 days Discontinued linaclotide (Linzess) Discontinued Reason: Doctor's Order 72 mcg PO DAILY 90 days 90 caps 1RF Patient Instructions: - STOP linzess and psyllium - START benefiber- start with 1 tsp/day. Increase to 1 tbsp/day after 2-3 weeks. Some bloating is expected in the initial few weeks. - START miralax 17g/8oz once a day. SKIP if you start having soft/loose stools - If no response to constipation with above, start motegrity. - Incorporate at least 20 mins of moderate intensity exercise per day. Coding Level of Care Code Est Pt Level 4 (54664) Diagnoses Abdominal pain R10.9 Mixed irritable bowel syndrome K58.2
== END 2025-04-11 09:57 | disposition home or self-care (01) ==
LOC: HO.HGI 09:31
PROVIDERS: PCP Nurse Practitioner Family; Visit Provider Internal Medicine
DX: R10.9 Unspecified abdominal pain (principal); K58.2 Mixed irritable bowel syndrome
CPT/HCPCS: 99214

== ENCOUNTER → 2025-04-11 09:30 | Outpatient (BNVA) | payer OTHER, SELFPAY | PROVIDERS: PCP Nurse Practitioner Family; Visit Provider Internal Medicine | DX: K58.2 Mixed irritable bowel syndrome (principal) | CPT/HCPCS: 99212 ==

== ENCOUNTER 2025-06-20 14:50 | Outpatient (AMB) | payer OTHER, SELFPAY ==
--- NOTE | 2025-06-20 14:56 | A.OFFPC_ITS ---
Vital Signs 06/20/25 15:01 Height 5 ft 11 in Weight 191 lb 6 oz BMI 26.7 BP 116/64 Blood Pressure Location Rt brachial Position Sitting Respiration 12 Pulse 77 Pulse Source Pulse Oximeter Temp 97.4 F Temp Source Temporal Artery Scan Pulse Oximetry (%) 97 Oxygen Delivery Method Room Air Intake Visit Reasons: Rt feet pain/lower back pain /breaking out on head Intake Note: Molly presents in the office today for pain in his right foot and lower back. He is also having issues with acne on his scalp. Patient would like to have his feet looked at due having warts. Allergies No Known Allergies Allergy (Verified 06/20/25 14:59) Medication List - Last Reconciled 06/20/25 by Marc Vides MD cholecalciferol (vitamin D3) 1,250 mcg PO QWEEK 90 days naproxen 500 mg PO BID PRN 30 days Tobacco use date assessed: 06/20/25 Dental Screening Dental Screen Date: 06/20/25 Did you have a dental visit in the last 12 months?: No Did you have a dental problem in the last 6 months where you did not have access to dental care?: No Was dental information given to patient?: Patient declined HPI Rt feet pain/lower back pain /breaking out on head HPI Details 34 y/o male presents with complaints of low back pain, feet pain, scalp abnormalities. Pt notes folliculitis of his scalp. He notes this has been a recurrent issue. Has complaints of significant plantar warts. Pt notes low back pain. He notes he has trialed physical therapy which has helped a bit but did not resolve the issue. Also reports R knee pain. HPI Comments History of Present Illness Details Documentation assistance for Marc Vides MD, was provided by Ellis Avery, Cooler Conveyor Loader on 06/20/2025 at 3:17 PM EST. I, Dr. Vides, have read, observed, and verified documentation. [facility] Medical History IBS (irritable bowel syndrome) Family History (Updated 06/20/25 @ 15:01 by Tammy Donaldson CMA) Mother High blood pressure Diabetes Social History (Updated 06/20/25 @ 15:01 by Tammy Donaldson CMA) Housing: House Alcohol intake: never Patient Tobacco Use Status: Never used Tobacco e-Cigarette/Vaping Use: Never Used Second Hand Smoke Exposure: No Use of substances other than those prescribed or required for medical reasons: No service: No Current occupational status: employed Current occupation: retail Current occupational exposures/hazards: No Cognitive needs: No Hearing needs: No Vision needs: No Questionnaire Thrive Questionnaire Date Thrive assessed: 11/23/24 I am a: Patient What is your living situation today?: I have a steady place to live Within the past 12 months, did the food you bought not last and you didn't have the money to get more?: Never true Within the past 12 months, did you worry whether your food would run out before you got money to buy more?: Never true Do you have trouble paying for medicines?: No Do you have trouble getting transportation to medical appointments?: No Do you have trouble paying your heating and electricity bill?: No Do you have trouble taking care of your child, family member or friend?: No Do you have trouble with day-to-day activities such as bathing, preparing meals, shopping, managing finances, etc.?: No Are you currently unemployed and looking for a job?: No Are you interested in more education?: I choose not to answer this question Please select the resources that you would like help with: None Currently or been in a relationship where the following occur: No concerns reported THRIVE Score: 0 DONALD-7 AMB Questionnaire DONALD-7 Date DONALD - 7 assessed: 11/23/24 Source: Developed by Drs. Shahbaz Tapia, Roya Higuera, Gigi Rome and colleagues, with an educational dev from [employer]. Review of Systems Const Denies chills, Denies fatigue, Denies fever(s), Denies headache(s) and Denies weakness ENT Denies dizziness and Denies headache(s) Card Denies dyspnea Resp Denies cough, Denies dyspnea, Denies wheezing and Denies other (shortness of breath) Musc Reports back pain, Denies numbness and Denies tingling Neuro Denies dizziness, Denies headache(s), Denies numbness, Denies tingling and Denies weakness Psych Denies anxiety and Denies depression Endo Denies fatigue Aller/Immun Denies wheezing Physical exam (Primary Care) Vital Signs: Last Vital Signs Temp 97.4 F 06/20/25 15:01 Pulse 77 06/20/25 15:01 Resp 12 06/20/25 15:01 BP 116/64 06/20/25 15:01 Pulse Ox 97 06/20/25 15:01 Oxygen Delivery Method Room Air 06/20/25 15:01 BMI result Body Mass Index 26.7 Tobacco/Smoking Status: Tobacco use Status Tobacco use date assessed 06/20/25 06/20/25 15:03 Patient Tobacco Use Status Never used Tobacco 06/20/25 15:01 e-Cigarette/Vaping Use Never Used 06/20/25 15:01 Thrive Assessment: Date of Thrive Assessment Date Thrive assessed 11/23/24 06/20/25 14:58 Currently or been in a relationship where the following occur: No concerns reported Const General: well developed; No acute distress Nutritional Appearance: well nourished Orientation/consciousness: patient oriented x3 HENMT Head: Yes normocephalic and Yes atraumatic Eyes General: appearance normal, both eyes and all related structures Pupils: Equal, round and reactive pupils present EOM: EOMs intact bilaterally Resp Effort & Inspection: normal respiratory effort Neuro General: patient oriented x3 and gait normal Cranial nerves: Yes Equal, round and reactive pupils present Psych Affect: normal affect Coding Level of Care Code Est Pt Level 4 (36612) Diagnoses Folliculitis L73.9 Plantar wart B07.0 Low back pain M54.50 Right knee pain M25.561 Assessment & Plan Assessment & Plan (1) Folliculitis: Code(s): L73.9 - Follicular disorder, unspecified Category: Medical Plan: Patient says that he has tried topicals on his scalp previously and that they o nly helped temporarily Referred to dermatology (2) Plantar wart: Code(s): B07.0 - Plantar wart Category: Medical Plan: Large plantar wart on right 5th toe Multiple smaller plantar warts on anterior aspect of plantar surface of right foot Referred to Podiatry (3) Low back pain: Code(s): M54.50 - Low back pain, unspecified Category: Medical Plan: Ongoing low back pain despite conservative treatment with physical therapy previously. Also, x-ray was negative Referred to physiatry (4) Right knee pain: Code(s): M25.561 - Pain in right knee Category: Medical Plan: Right knee and proximal graham muscle pain/tenderness Will check x-ray Patient will be seen physiatry for low back and discuss right knee as well Orders: Orders XR knee RT 3V Today M25.561 - Pain in right knee Referrals Dermatology Referral L73.9 - Follicular disorder, unspecified Physiatry Referral M25.561 - Pain in right knee, M54.50 - Low back pain, unspecified Podiatry Referral B07.0 - Plantar wart
[2025-06-20 15:01] VITALS: BP 116/64; PULSE 77; RESP 12; TEMP 36.3; O2SAT 97; BMI 26.7
--- OUTSIDE RECORDS SUMMARY | 2025-06-20 17:58 | XMS_ITS | Data Portability ---
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 Procedures Surgical History Date Name Laterality Status Provider Name and Address Organization Details Recorded Time 08/30/2024 Comp Audio with Tymps - 35169 & 67258 completed Shabana Licea MA - [facility] 08/30/2024 15:49:02 Imaging Results None recorded. Procedure [...] Not Available Not Available Not Available cholecalcif kaitlni (vitamin D3) 125 mcg (5,000 unit) capsule [...] Diagnosis SNOMED-CT Code Diagnosis ICD10 Code Diagnosis IMO Codes Diagnosis Note [id number] PAULY FLYNN PA-C [facility] [address] [place] [address] 08/30/2024 15:20:29 08/30/2024 16:09:01 Conductive hearing loss 59032030 H90.11 Audiologic al evaluation results: Right ear: Normal/mil d conductive hearing loss with excellent word recognitio n. Left ear: Normal hearing with excellent word recognitio n. Tympanomet ry: Right Ear:Type B with large volume Left Ear:Type A Chronic sore throat 2754 97709 J31.2 Marginal p erforation of tympanic membrane 23381762 H72.2X1 Health Concerns Section Related Observation LastModified by Organization Detai ls LastModified Time None Recorded Concern Status LastModified by Organization Details LastModified Time None Recorded Advance Directives Directive None Recorded Payers Insurance Date Sequence Insurance Name Policy Number Policy Han Covered Member ID Han Member ID Guarantor Name 09/18/2024 1 [facility] ([id number]) [id number] Mollyhayley Weinstein [id number] Molly Weinstein Notes Date Note Type Note Provider Name and Address Organization Details Recorded Time 08/30/2024 text/html ROS as noted in the HPI 33 year old male presents for evaluation [...] ago. He has never undergone otologic surgery. Pauly mooney MA - [facility] 08/30/2024 16:21:05
== END 2025-06-20 15:51 | disposition home or self-care (01) ==
LOC: HO.HMCFM 14:51
PROVIDERS: PCP Family Medicine; Visit Provider Family Medicine
DX: M54.50 Low back pain, unspecified (principal); M25.561 Pain in right knee; L73.9 Follicular disorder, unspecified; B07.0 Plantar wart

== ENCOUNTER → 2025-06-20 14:50 | Outpatient (BNVA) | payer OTHER, SELFPAY | PROVIDERS: PCP Family Medicine; Visit Provider Family Medicine | DX: B07.0 Plantar wart (principal); M54.50 Low back pain, unspecified; M79.672 Pain in left foot; M79.671 Pain in right foot; L73.9 Follicular disorder, unspecified; M25.561 Pain in right knee | CPT/HCPCS: 99212 ==

== ENCOUNTER 2025-06-27 10:03 | Outpatient (AMB) | payer OTHER, SELFPAY ==
[2025-06-27 10:12] VITALS: BP 121/78; PULSE 83; BMI 26.4
--- NOTE | 2025-06-27 10:12 | MHC.OFFVIS ---
Vital Signs 06/27/25 10:12 Height 5 ft 11 in Weight 189 lb 9.561 oz BMI 26.4 BP 121/78 Blood Pressure Location Lt brachial Position Sitting Pulse 83 Intake Visit Reasons: 2m Intake Note: Fortino presents in the office as a 2 month follow up. CC: states that he has an issues when he eats he has a breakout almost like pmples sand not sure if it is an allergic reaction. Community Health Education Coordinator Required: No Allergies No Known Allergies Allergy (Verified 06/20/25 14:59) HPI Comments Details: 33 y.o M with fluctuating BMs x years. Used to be in [place] moved to [facility] almost a year ago. Was recommended endoscopic work up back in [place] as well but never got around to it. Pt reports for the longest time had lower abd pain with diarrhea up to 5-6/ day. No night time sx. NO blood in stool. Abd pain gets better with defecation. More recently is fluctuating towards constipation for the past few months. Stool is hard and has to strain. Has not tried any specific therapy. Pt also reports extra-GI sx after certain foods such as increased sensation of flushing and skin rash after certain foods. Has never gotten food allergy testing done. Lifestyle is sedentary erika due to work. Diet is low in fiber. No fam hx of IBD or CRC. Labs from PCP reviewed- normal ESR. 08/02/24: Here for follow up. Was seen by formstone fitter 07/18 records pending. Reports continued issues with constipation including lower abd pain that gets better with defecation. Also with significant straining. Labs reviewed and apart from low complement 4, rest normal from GI standpoint. Reports work up is being done through formstone fitter office an resutls pending. Also has low Vit D for which supplements already started. Discussed dietary mods - had loose BMs with fiber so stopped within a week. Lifestyle is mostly sedentary. Laboratory Tests 06/07/24 06/08/24 11:00 09:45 Hgb 15.4 Hct 44.7 C-Reactive Protein < 0.10 Tryptase 3.4 25-OH Vitamin D Total 19.8 L TSH 1.54 Stool Calprotectin <5 Tiss Transglutamin IgA <1.0 Complement C4 13 L Hep Bs Antigen Negative Hep Bs Antibody NONREACTIVE Hep B Core Total Ab Nonreactive 01/03/25: Here for follow up. Reports took psyllium x 1 week. However gets significant bloating. Was switched to fibercon by PCP. However despite improvement in constipation persists with abd cramping and bloating. Sometimes also fluctuates with diarrhea. 04/11/25: Here for follow up. Had severe side effects with linzess despite retrial. Continues to fluctuate between constipation and diarrhea. Describes constipation as hard stool that requires significant straining. Passes small sara. But does go daily. Has tried psyllium but caused cramping and bloating. Between diarrhea and constipation, constipation is more bothersome. 06/27/25: Here for follow up. Reports significant improvement in sx addition of fiber alone. DId not have to reach for motegrity at all. Has 1 BM per day. Does report significant straining however and defecation is occ painful. Pt also reports eruptions in his scalp which he attributes to food intake but has not been identify any certain food groups. Seeing derm for this. [facility] Medical History IBS (irritable bowel syndrome) Family History (Updated 06/20/25 @ 15:01 by Tammy Donaldson CMA) Mother High blood pressure Diabetes Social History (Updated 06/20/25 @ 15:01 by Tammy Donaldson CMA) Housing: House Alcohol intake: never Patient Tobacco Use Status: Never used Tobacco e-Cigarette/Vaping Use: Never Used Second Hand Smoke Exposure: No service: No Current occupational status: employed Current occupation: retail Current occupational exposures/hazards: No Cognitive needs: No Hearing needs: No Vision needs: No Review of Systems Const All systems reviewed & are unremarkable except as noted in HPI and below Physical Exam Exam Exam: No apparent distress Nonicteric Abdomen soft, nondistended Alert and oriented x3, normal gait Vital Signs: Last Vital Signs Pulse 83 06/27/25 10:12 BP 121/78 06/27/25 10:12 BMI result Body Mass Index 26.4 Assessment & Plan Assessment & Plan (1) Abdominal pain: Code(s): R10.9 - Unspecified abdominal pain Category: Medical (2) Mixed irritable bowel syndrome: Code(s): K58.2 - Mixed irritable bowel syndrome Category: Medical Plan Reviewed that based on w/up dx consistent with IBS-mixed type. Good response with benefiber. Advised to add miralax to avoid straining and painful defecation. - Adequate hydration - Cont benefiber 1 tbsp per day. - Add miralax once a day. Skip if develops loose stools. - Low FODMAP diet again reviewed - Incorporate daily exercise/stretching Follow up 6 months Coding Level of Care Code Est Pt Level 3 (03553) Diagnoses Abdominal pain R10.9 Mixed irritable bowel syndrome K58.2
== END 2025-06-27 10:44 | disposition home or self-care (01) ==
LOC: HO.HGI 10:04
PROVIDERS: PCP Family Medicine; Visit Provider Internal Medicine
DX: R10.9 Unspecified abdominal pain (principal); K58.2 Mixed irritable bowel syndrome
CPT/HCPCS: 99213

== ENCOUNTER → 2025-06-27 10:03 | Outpatient (BNVA) | payer OTHER, SELFPAY | PROVIDERS: PCP Family Medicine; Visit Provider Internal Medicine | DX: K58.2 Mixed irritable bowel syndrome (principal); R10.9 Unspecified abdominal pain | CPT/HCPCS: 99212 ==

== ENCOUNTER 2025-07-23 14:43 | Outpatient (AMB) | payer OTHER, SELFPAY ==
[2025-07-23 14:58] VITALS: BMI 26.4
--- NOTE | 2025-07-23 14:58 | A.OFFVIS_ITS ---
Vital Signs 3 07/23/25 14:58 Height 5 ft 11 in Weight 189 lb BMI 26.4 Intake Visit Reasons: plantar wart Intake Note: Molly is a 34 year old male who presents to the office today as a new patient visit referred by his PCP Dr. Vides for plantar wart. Per PCP pt has a Large plantar wart on right 5th toe and multiple smaller plantar warts on anterior aspect of plantar surface of right foot. Pt states this has been going on for over a year and has tried OTC treatments,and he was seen by a previous human resource statistician for the warts and has found no relief for his symptoms. Warts are located bilateral foot however patient is experiencing more pain in his right foot. Allergies No Known Allergies Allergy (Verified 07/23/25 15:01) HPI HPI plantar wart: Details: 34 y/o male seen today for initial evaluation of bilateral foot warts. He states the lesions started several months ago. He received treatment with another Green Marketer who performed cryotherapy and recommended over the counter wart medication. He notes less lesions now than before however it has been spreading further. He has not tried any treatment after seeing his other human resource statistician from 3 months ago. [facility] Medical History IBS (irritable bowel syndrome) Family History (Updated 06/20/25 @ 15:01 by Tammy Donaldson CMA) Mother High blood pressure Diabetes Social History (Updated 06/20/25 @ 15:01 by Tammy Donaldson CMA) Housing: House Alcohol intake: never Patient Tobacco Use Status: Never used Tobacco e-Cigarette/Vaping Use: Never Used Second Hand Smoke Exposure: No service: No Current occupational status: employed Current occupation: retail Current occupational exposures/hazards: No Cognitive needs: No Hearing needs: No Vision needs: No Review of Systems Const All systems reviewed & are unremarkable except as noted in HPI and below Physical Exam Vital Signs: BMI result Body Mass Index 26.4 Extrem Other: *Bilateral Lower Extremity Focused Exam Vascular: DP/PT 2/4, CFT<3s to digits, TG warm to cool, no pedal edema Derm: moccasin distribution of plantar verrucous lesions. Right foot has approximately 23 lesions, worst to the right 5th sulcus. Left foot has approximately 7 lesions. Neuro: Protective sensation grossly intact to bilateral lower extremities. MSK: Mild tenderness on palpation of the right 5th toe Office Procedures AMB Wart Destruction Podiatry Details of Procedure: Procedure: Wart destruction Location: left foot, 7 lesions Anesthesia: N/A Description: The affected area was cleansed with an antiseptic solution. Using a sterile #15 blade, the hyperkeratotic tissue was radially debrided from the foot. Next, Canthardin was applied using an applicator to the wart, and occluded using a band-aid. Tolerance: Patient tolerated procedure well, no immediate complications. 65892 - Wart Destruction (<15) Procedure code (CPT) selection complete AMB Wart Destruction Podiatry Details of Procedure: Procedure: Wart destruction Location: right foot, 23 lesions Anesthesia: N/A Description: The affected area was cleansed with an antiseptic solution. Using a sterile #15 blade, the hyperkeratotic tissue was radially debrided from the foot. Next, canthardin was applied using an applicator to the wart, and occluded using a band-aid. Tolerance: Patient tolerated procedure well, no immediate complications. 88577 - Wart Destruction (>15) Procedure code (CPT) selection complete Office Meds cantharidin 0.7 % topical solution with applicator Performing Provider: Lico Juan DPM [facility] Administered by: Lico Juan DPM on 07/23/25 19:30 2 Dose Route Admin Location Dispensed Lot Number Expiration Date [facility] Drywall Taper Helper 1 appl topical 1 appl [id number] [facility] Assessment & Plan Assessment & Plan (1) Plantar wart: Code(s): B07.0 - Plantar wart Category: Medical Plan: * Discussed etiology of lesions and possible sources of contraction * Debrided and treated with Canthardin. Dressed with band-aids. Instructed to keep occluded for 5 days. * Follow up in 2 weeks for repeat application Orders: Orders 2 AMB Wart Destruction Podiatry Today B07.0 - Plantar wart Coding Level of Care Code New Pt Level 4 (61242) Diagnoses Plantar wart B07.0 CPT Codes Destruction of Wart - CPT: 93694 - Wart Destruction (<15) ([id number]) Destruction of Wart - CPT: 78897 - Wart Destruction (>15) ([id number]) Time Spent (min) 15
--- OUTSIDE RECORDS SUMMARY | 2025-07-24 | XMS_ITS | Data Portability ---
Author Organization [place] - [facility], Allergy Address [address] [address] Care Team Providers Care Barge Worker Name Role Phone DAJUAN HYATT Primary Care Provider [phone] DAJUAN HYATT Referring Provider Assessment Encounter Date [...] Organization Details Recorded Time Conductive hearing loss 52465863 Active 2024 Shabana mooney [place] - [facility] 15:49:26 Chronic sore throat 382478593 Active 2024 Pauly mooney MA - [facility] 16:20:23 Marginal perforation of tympanic membrane 83416095 Active 2024 Pauly mooney MA - [facility] 16:20:38 Problem Notes None recorded. Procedures Surgical History Date Name Laterality Status Provider Name and Address Organization Details Recorded Time 08/30/2024 Comp Audio with Tymps - 56564 & 99311 completed Shabana Licea MA - [facility] 08/30/2024 15:49:02 Imaging Results None recorded. Procedure [...] ICD10 Code Diagnosis IMO Codes Diagnosis Note [id number] PAULY FLYNN PA-C [facility] [place] [address] [place] [address] 08/30/2024 15:20:29 08/30/2024 16:09:01 Conductive hearing loss 61694564 H90.11 Audiologic al evaluation results: Right ear: Normal/mil d conductive hearing loss with excellent word recognitio n. Left ear: Normal hearing with excellent word recognitio n. Tympanomet ry: Right Ear:Type B with large volume Left Ear:Type A Chronic sore throat 2754 93275 J31.2 Marginal p erforation of tympanic membrane 67672574 H72.2X1 Health Concerns Section Related Observation LastModified by Organization Detai ls LastModified Time None Recorded Concern Status LastModified by Organization Details LastModified Time None Recorded Advance Directives Directive None Recorded Payers Insurance Date Sequence Insurance Name Policy Number Policy Han Covered Member ID Han Member ID Guarantor Name 09/18/2024 1 [facility] [employer] [facility] (O) [id number] Mollyhayley Weinstein [id number] Molly Weinstein Notes Date Note Type [...] mooney MA - [facility] 08/30/2024 16:21:05
== END 2025-07-23 15:26 | disposition home or self-care (01) ==
LOC: HO.HPODS 14:44
PROVIDERS: PCP Family Medicine; Visit Provider Student in an Organized Health Care Education/Training Program
DX: B07.0 Plantar wart (principal)
CPT/HCPCS: 17111; 99203

== ENCOUNTER → 2025-07-23 14:43 | Outpatient (BNVA) | payer OTHER, SELFPAY | PROVIDERS: PCP Family Medicine; Visit Provider Student in an Organized Health Care Education/Training Program | DX: B07.0 Plantar wart (principal) | CPT/HCPCS: 17111; 99202; J7354 ==

== ENCOUNTER 2025-08-06 15:31 | Outpatient (AMB) | payer OTHER, SELFPAY ==
[2025-08-06 15:38] VITALS: BMI 26.4
--- NOTE | 2025-08-06 15:38 | A.OFFVIS_ITS ---
Vital Signs 08/06/25 15:38 Height 5 ft 11 in Weight 189 lb BMI 26.4 Intake Visit Reasons: plantar wart Intake Note: Molly is a 34 year old male who presents today for a follow up on his bilateral plantar warts. At his last visit warts were debrided and treated with Canthardin. Dressed with band-aids. Patient reports he is still experiencing pain in his right foot and he has seen slight improvement since his last visit. Allergies No Known Allergies Allergy (Verified 08/06/25 15:39) HPI HPI plantar wart: Details: 34 y/o male seen today for follow-up evaluation of bilateral foot warts. He notes the right foot 5th toe had blistered and had resolved shortly after. He removed his band-aids the day after his last treatment and replaced them. He notes having increased pain for 2-3 days after his last visit. History: He states the lesions started several months ago. He received treatment with another Boat Outboard Engine Mechanic who performed cryotherapy and recommended over the counter wart medication. He notes less lesions now than before however it has been spreading further. He has not tried any treatment after seeing his other chip unloader from 3 months ago. [facility] Medical History IBS (irritable bowel syndrome) Family History (Updated 06/20/25 @ 15:01 by Tammy Donaldson CMA) Mother High blood pressure Diabetes Social History (Updated 06/20/25 @ 15:01 by Tammy Donaldson CMA) Housing: House Alcohol intake: never Patient Tobacco Use Status: Never used Tobacco e-Cigarette/Vaping Use: Never Used Second Hand Smoke Exposure: No service: No Current occupational status: employed Current occupation: retail Current occupational exposures/hazards: No Cognitive needs: No Hearing needs: No Vision needs: No Review of Systems Const All systems reviewed & are unremarkable except as noted in HPI and below Physical Exam Vital Signs: BMI result Body Mass Index 26.4 Office Procedures AMB Wart Destruction Podiatry Details of Procedure: AMB Wart Destruction Podiatry Details of Procedure: Procedure: Wart destruction Location: right foot, 17 lesions Anesthesia: N/A Description: The affected area was cleansed with an antiseptic solution. Using a sterile #15 blade, the hyperkeratotic tissue was radially debrided from the foot. Next, canthardin was applied using an applicator to the wart, and occluded using a band-aid. Tolerance: Patient tolerated procedure well, no immediate complications. 59096 - Wart Destruction (>15) Procedure code (CPT) selection complete AMB Wart Destruction Podiatry Details of Procedure: Procedure: Wart destruction Location: left foot, 2 lesions Anesthesia: N/A Description: The affected area was cleansed with an antiseptic solution. Using a sterile #15 blade, the hyperkeratotic tissue was radially debrided from the foot. Next, Canthardin was applied using an applicator to the wart, and occluded using a band-aid. Tolerance: Patient tolerated procedure well, no immediate complications. 81715 - Wart Destruction (<15) Procedure code (CPT) selection complete Office Meds cantharidin 0.7 % topical solution with applicator Performing Provider: Lico Juan DPM Performing Location: [facility] Administered by: Lico Juan DPM on 08/06/25 16:20 Dose Route Admin Location Dispensed Lot Number Expiration Date [facility] Commercial Phot[employer] 1 appl topical 1 appl [id number] [employer] cantharidin 0.7 % topical solution with applicator Performing Provider: Lico Juan DPM Performing Location: [facility] Documented (not given) by: Lico Juan DPM on 08/06/25 16:20 Reason Not Given: No Longer Necessary Assessment & Plan Assessment & Plan (1) Plantar wart: Code(s): B07.0 - Plantar wart Category: Medical Plan: * Discussed etiology of lesions and possible sources of contraction * Debrided and treated with Canthardin. Dressed with band-aids. Instructed to keep occluded for 5 days. * Discussed signs of improvement with less lesions in the right foot, blister formation with likely improvement seen on the 5th toe, decreased lesions on the left foot. However, if symptoms persist, discussed possible OR debridement * Follow up in 2 weeks for repeat application Orders: Orders AMB Wart Destruction Podiatry Today B07.0 - Plantar wart AMB Wart Destruction Podiatry Today B07.0 - Plantar wart Medications: New ibuprofen Take one tablet every 6hr 600 mg PO Q6H PRN 30 tabs 0RF pain (scale score 4- 6) B07.0 - Plantar wart Coding Level of Care Code Procedure Only Diagnoses Plantar wart B07.0 CPT Codes Destruction of Wart - CPT: 95600 - Wart Destruction (>15) ([id number]) Destruction of Wart - CPT: 99790 - Wart Destruction (<15) ([id number])
--- OUTSIDE RECORDS SUMMARY | 2025-08-06 18:31 | XMS_ITS | Data Portability ---
Author Organization [place] - [facility], Allergy Address [address] [address] Care Team Providers Care Slasher Operator Name Role Phone DAJUAN HYATT Primary Care [...] Organization Details Recorded Time Conductive hearing loss 95494439 Active 2024 Shabana mooney MA - [facility] [place] 15:49:26 Chronic sore throat 111754760 Active 2024 Pauly mooney MA - [facility] [place] 16:20:23 Marginal perforation of tympanic membrane 34368355 Active 2024 Pauly mooney MA - [facility] [place] 16:20:38 Problem Notes None recorded. Procedures Surgical History Date Name Laterality Status Provider Name and Address Organization Details Recorded Time 08/30/2024 Comp Audio with Tymps - 43795 & 59720 completed Shabana Licea MA - [facility] [place] 08/30/2024 15:49:02 Imaging Results None recorded. Procedure [...] ICD10 Code Diagnosis IMO Codes Diagnosis Note [id number] PAULY FLYNN PA-C [facility] [address] [place] [address] 08/30/2024 15:20:29 08/30/2024 16:09:01 Conductive hearing loss 54694227 H90.11 Audiologic al evaluation results: Right ear: Normal/mil d conductive hearing loss with excellent word recognitio n. Left ear: Normal hearing with excellent word recognitio n. Tympanomet ry: Right Ear:Type B with large volume Left Ear:Type A Chronic sore throat 2754 30744 J31.2 Marginal p erforation of tympanic membrane 25576582 H72.2X1 Health Concerns Section Related Observation LastModified by Organization Detai ls LastModified Time None Recorded Concern Status LastModified by Organization Details LastModified Time None Recorded Advance Directives Directive None Recorded Payers Insurance Date Sequence Insurance Name Policy Number Policy Han Covered Member ID Han Member ID Guarantor Name 09/18/2024 1 [facility] [employer] [facility] (O) [id number] Mollyhayley Weinstein [id number] Molly Weinstein Notes Date Note Type [...] mooney MA - [facility] 08/30/2024 16:21:05
== END 2025-08-06 16:48 | disposition home or self-care (01) ==
LOC: HO.HPODS 15:31
PROVIDERS: PCP Family Medicine; Visit Provider Student in an Organized Health Care Education/Training Program
DX: B07.0 Plantar wart (principal)
CPT/HCPCS: 17111

== ENCOUNTER 2025-08-14 13:23 | Outpatient (REF) | payer OTHER, SELFPAY ==
--- NOTE | ~2025-08-14 | XR_ITS ---
EXAMINATION: XR KNEE 3 VIEWS RIGHT HISTORY: M25.561 - Pain in right knee COMPARISON: There are no prior studies available for comparison. FINDINGS: Three views of the right knee are submitted. Osseous mineralization is normal. There is no fracture or dislocation. The joint spaces are preserved. The soft tissues are unremarkable. There is no joint effusion. XR/XR knee RT 3V IMPRESSION: Unremarkable examination of the right knee. Electronically signed by: Shahbaz Loza MD 08/14/2025 02:10 PM JANIE
--- OUTSIDE RECORDS SUMMARY | 2025-08-14 17:18 | XMS_ITS | Data Portability ---
Author Organization [place] - [facility], Allergy Address [address] [address] Care Team Providers Care Foreclosure Field Inspector Name Role Phone DAJUAN HYATT Primary [...] Organization Details Recorded Time Conductive hearing loss 47402511 Active 2024 Shabana mooney [place] - [facility] [place] 15:49:26 Chronic sore throat 989943438 Active 2024 Pauly mooney MA - [facility] [place] 16:20:23 Marginal perforation of tympanic membrane 03860551 Active 2024 Pauly mooney MA - [facility] [place] 16:20:38 Problem Notes None recorded. Procedures Surgical History Date Name Laterality Status Provider Name and Address Organization Details Recorded Time 08/30/2024 Comp Audio with Tymps - 57435 & 04784 completed Shabana Licea MA - [facility] [place] 08/30/2024 15:49:02 Imaging Results None recorded. Procedure [...] ICD10 Code Diagnosis IMO Codes Diagnosis Note [id number] PAULY FLYNN PA-C [facility] [address] [place] [address] 08/30/2024 15:20:29 08/30/2024 16:09:01 Conductive hearing loss 86623239 H90.11 Audiologic al evaluation results: Right ear: Normal/mil d conductive hearing loss with excellent word recognitio n. Left ear: Normal hearing with excellent word recognitio n. Tympanomet ry: Right Ear:Type B with large volume Left Ear:Type A Chronic sore throat 2754 71952 J31.2 Marginal p erforation of tympanic membrane 80055100 H72.2X1 Health Concerns Section Related Observation LastModified by Organization Detai ls LastModified Time None Recorded Concern Status LastModified by Organization Details LastModified Time None Recorded Advance Directives Directive None Recorded Payers Insurance Date Sequence Insurance Name Policy Number Policy Han Covered Member ID Han Member ID Guarantor Name 09/18/2024 1 [facility] [employer] [facility] (O) [id number] Mollyhayley Weinstein [id number] Molly Weinstein Notes Date Note Type [...] mooney MA - [facility] 08/30/2024 16:21:05
== END 2025-08-14 13:24 ==
LOC: HO.XRAY 13:23
PROVIDERS: PCP Family Medicine; Visit Provider Orthopaedic Surgery
DX: M25.561 Pain in right knee (principal)
CPT/HCPCS: 73562

== ENCOUNTER → 2025-08-14 13:27 | Outpatient (BNV) | payer OTHER, SELFPAY | PROVIDERS: PCP Family Medicine; Visit Provider Radiology Diagnostic Radiology | DX: M25.561 Pain in right knee (principal) | CPT/HCPCS: 73562 ==

== ENCOUNTER 2025-08-15 13:03 | Outpatient (AMB) | payer OTHER, SELFPAY ==
--- NOTE | 2025-08-15 13:05 | MHC.OFFVIS ---
Vital Signs 08/15/25 13:13 Height 5 ft 11 in Weight 180 lb 12.465 oz BMI 25.2 Intake Visit Reasons: N/P rt knee pain/ no injury Intake Note: Molly is a 34 year old male who presents with complaints of progressively worsening right knee pain. The patient describes his pain as sharp in nature. Most of the pain is along the medial aspect of his knee. The patient states that his symptoms have been getting worse over the last 6 months. He has failed the last 6 weeks of conservative treatment which has included Tylenol, ibuprofen and a home exercise program. Allergies No Known Allergies Allergy (Verified 08/15/25 13:13) Medication List - Last Reconciled 08/15/25 by Gera Beckham MD cholecalciferol (vitamin D3) 1,250 mcg PO QWEEK 90 days ibuprofen 600 mg PO Q6H PRN naproxen 500 mg PO BID PRN 30 days PFSH Medical History Right knee pain IBS (irritable bowel syndrome) Family History (Updated 06/20/25 @ 15:01 by Tammy Donaldson CMA) Mother High blood pressure Diabetes Social History Housing: House Alcohol intake: never Patient Tobacco Use Status: Never used Tobacco e-Cigarette/Vaping Use: Never Used Second Hand Smoke Exposure: No service: No Current occupational status: employed Current occupation: retail Current occupational exposures/hazards: No Cognitive needs: No Hearing needs: No Vision needs: No Physical Exam Vital Signs: BMI result Body Mass Index 25.2 Extrem Other: Right knee examination shows a minimal effusion, minimal crepitus with range of motion, no instability Results Reviewed Results Reviewed: X-rays of the patient's right knee show no acute bony abnormalities Assessment & Plan Assessment & Plan (1) Tear of medial meniscus of right knee: Code(s): S83.241A - Other tear of medial meniscus, current injury, right knee, initial encounter Category: Medical Plan Mr. Ng presents with right knee pain and mechanical symptoms possibly due to a medial meniscus tear. Thus, I will send the patient for an MRI of his right knee for further evaluation. I will see him back once the MRI is completed to discuss the findings and treatment options. Feel free call me at any time should questions regarding his orthopedic management arise. Thank you very much for asking me to see this very friendly gentleman. I spent 22 minutes in reviewing the patient's records and imaging studies, seeing the patient and documenting in the medical record. Orders: Orders XR knee RT 3V 08/14/25 M25.561 - Pain in right knee MR knee RT wo con 08/17/25 S83.241A - Other tear of medial meniscus, current injury, right knee, initial encounter Coding Level of Care Code New Pt Level 3 (46922) Add On Problem Visit Only Diagnoses Tear of medial meniscus of right knee S83.241A
[2025-08-15 13:13] VITALS: BMI 25.2
== END 2025-08-15 13:26 | disposition home or self-care (01) ==
LOC: HO.HOS 13:03
PROVIDERS: PCP Family Medicine; Visit Provider Orthopaedic Surgery
DX: S83.241A Other tear of medial meniscus, current injury, right knee, initial encounter (principal)
CPT/HCPCS: 99203

== ENCOUNTER → 2025-08-15 13:03 | Outpatient (BNVA) | payer OTHER, SELFPAY | PROVIDERS: PCP Family Medicine; Visit Provider Orthopaedic Surgery | DX: S83.241A Other tear of medial meniscus, current injury, right knee, initial encounter (principal); X58.XXXA Exposure to other specified factors, initial encounter; Y93.9 Activity, unspecified; Y92.9 Unspecified place or not applicable; Y99.9 Unspecified external cause status | CPT/HCPCS: 99202 ==